=== PATIENT | male | born 1965 | race Caucasian/White ===

== ENCOUNTER 2017-04-04 00:54 | Emergency (ER) | payer OTHER ==
[~2017-04-04] VITALS: Ht 172.7 cm; Wt 111.7 kg
[~2017-04-04 00:54] MED LIST: ADDERALL XR 2020 MG PO; ADDERALL10 MG PO; ADDERALL30 MG PO; ASPIR 8181 M1 PO; Ascorbic Acid,Ester- PO; CIPRO500 MG PO; DEPAKOTE ER250 MG PO; DILAUDID2 MG PO; FIBER TABS625 MG PO; FIBER THERAPY0.52 GM PO; FISH OIL 1,0001 EAC7 PO; FLAGYL500 MG PO; GLUCOSAMINE &1 EACH PO; KLONOPIN1 MG PO; MEDROL PO; MEN'S DAILY FO1 EAC1 PO; MOTRIN600 MG PO; NORCO 5/3251 TABLET PO; ONE DAILY MULT1 EACH PO; Omega III EPA + DHA PO; PERCOCET 5/31 TABLET PO; PREDNISONE10 MG PO; SUPER B COMP1 TABLET PO; SUPER B COMPLE1 EAC1 PO; TORADOL10 MG PO; Theragran PO; VITAMIN C1000 MG PO; Vitamin B Complex PO; ZOFRAN ODT4 MG PO
[2017-04-04 02:33] LABS: HEMATOCRIT 41.8 % (38.0-50.0); HEMOGLOBIN 14.5 G/DL (12.5-16.6); MCH 32.6 PG (29.0-34.0); MCHC 34.7 G/DL (30.0-36.0); MCV 93.9 FL (86-99); PLATELET COUNT 226 K/uL (156-360); RBC DIS.WIDTH-CV 12.6 % (11.8-14.6); RBC DIS.WIDTH-SD 43.5 % (39-53); RED BLOOD COUNT 4.45 M/uL (4.00-5.50); WHITE BLOOD COUNT 10.2 K/uL (4.1-10.2)
[2017-04-04 02:42] LABS: CHLORIDE 105 mEq/L (99-109); POTASSIUM 3.9 mEq/L (3.7-5.4); SODIUM 140 mEq/L (136-147)
[2017-04-04 02:44] LABS: GLUCOSE 140 mg/dL (70-99)
[2017-04-04 02:47] LABS: CREATININE 0.8 mg/dL (0.6-1.3); GFR ESTIMATE (CALCULATED) > 59 mL/min/ (58.99-99999)
[2017-04-04 02:48] LABS: UREA NITROGEN (BUN) 16 mg/dL (9-23)
[2017-04-04] MEDS ORDERED: MEDROL DOSEPAK4 MG PO (03:13)
[2017-04-04] MEDS ORDERED: TESSALON PERLE100 MG PO (03:15)
[2017-04-04 04:14] VITALS: BP 142/81
== END 2017-04-04 04:16 | disposition home or self-care (01) ==
LOC: EME 00:54
PROVIDERS: Physician Assistant
DX: J02.9 Acute pharyngitis, unspecified (principal); R05 Cough; R06.00 Dyspnea, unspecified; R09.3 Abnormal sputum; R09.81 Nasal congestion; H92.03 Otalgia, bilateral; Z86.73 Personal history of transient ischemic attack (TIA), and cerebral infarction without residual deficits; Z79.82 Long term (current) use of aspirin
CPT/HCPCS: 71046; 80048; 85027; 94640; 99281; 99284

== ENCOUNTER 2017-04-07 09:06 | Emergency (ER) | payer OTHER ==
[~2017-04-07] VITALS: Ht 172.7 cm; Wt 108.8 kg
[~2017-04-07 09:06] MED LIST changes: +MEDROL DOSEPAK4 MG PO; +TESSALON PERLE100 MG PO
[2017-04-07] MEDS ORDERED: ZITHROMAX Z-PA250 MG PO (11:44)
[2017-04-07 12:23] VITALS: BP 130/68
== END 2017-04-07 12:23 | disposition home or self-care (01) ==
LOC: EME 09:06
DX: J20.9 Acute bronchitis, unspecified (principal); F41.9 Anxiety disorder, unspecified; F31.9 Bipolar disorder, unspecified; F98.8 Other specified behavioral and emotional disorders with onset usually occurring in childhood and adolescence; Z79.82 Long term (current) use of aspirin; Z87.442 Personal history of urinary calculi; Z86.73 Personal history of transient ischemic attack (TIA), and cerebral infarction without residual deficits

== ENCOUNTER 2017-04-10 23:46 | Emergency (ER) | payer OTHER ==
[~2017-04-10] VITALS: Ht 175.3 cm; Wt 109.8 kg
[~2017-04-10 23:46] MED LIST changes: +ZITHROMAX Z-PA250 MG PO
[2017-04-11] MEDS ORDERED: PREDNISONE20 MG PO (02:42)
[2017-04-11] MEDS ORDERED: VENTOLIN HFA18 GM IH (02:42)
[2017-04-11 03:14] VITALS: BP 119/79
== END 2017-04-11 03:15 | disposition home or self-care (01) ==
LOC: RME 23:46 → EME 23:46 → RME 04-11 03:15
DX: J32.9 Chronic sinusitis, unspecified (principal); J20.9 Acute bronchitis, unspecified; F31.9 Bipolar disorder, unspecified; F41.9 Anxiety disorder, unspecified; Z87.442 Personal history of urinary calculi; Z86.73 Personal history of transient ischemic attack (TIA), and cerebral infarction without residual deficits
CPT/HCPCS: 71046; 93005; 94640; 94640 76; J7512